=== PATIENT | male | born 1955 | race Asian ===

== ENCOUNTER 2018-04-14 10:35 | Emergency (ER) | payer OTHER ==
[~2018-04-14] VITALS: Ht 157.5 cm; Wt 68.0 kg
[2018-04-14] MEDS ORDERED: LOSA25TA12 PO (10:42)
[2018-04-14] MEDS ORDERED: AMLO5TAB88 PO (10:42)
[2018-04-14] MEDS ORDERED: LOVA10TA54 PO (10:42)
[2018-04-14 12:08] LABS: HEMATOCRIT. 46.9 % (42.0-52.0); HEMOGLOBIN. 15.3 g/dL (14.0-18.0); MEAN CORPUSCULAR HEMOGLOBIN 29.8 pg (28.0-32.0); MEAN PLATELET VOLUME 9.5 fl (7.4-10.4); PLATELET 205 x1000/uL (130-400); RED BLOOD CELL COUNT 5.15 mill/uL (4.7-6.1); RED CELL DISTRIBUTION WIDTH 13.2 % (11.6-14.6)
[2018-04-14 12:18] LABS: CHLORIDE 99 mEq/L (98-107)
[2018-04-14] MEDS ORDERED: POTASSIUM CHLORIDE 20MEQ TABLET SR PO ONE (13:00)
[2018-04-14 13:40] LABS: PLATELET ESTIMATE NORMAL
[2018-04-14 14:25] VITALS: BP 176/107
== END 2018-04-14 14:35 | disposition home or self-care (01) ==
LOC: ER 10:52
DX: R41.82 Altered mental status, unspecified (principal); G80.9 Cerebral palsy, unspecified; R62.50 Unspecified lack of expected normal physiological development in childhood
CPT/HCPCS: 36415; 71045; 83880; 84484; 93005; 99285